=== PATIENT | female | born 1985 | race Caucasian/White ===

== ENCOUNTER 2021-11-22 12:42 | Emergency (ER) | payer OTHER ==
[~2021-11-22 12:42] MED LIST: FLEXERIL10 MG PO; MEDROL 4MG DOSEP4 MG PO
[2021-11-22] MEDS ORDERED: CEPHALEXIN500 MG PO (15:12)
== END 2021-11-22 15:19 | disposition home or self-care (01) ==
LOC: FER 12:42
DX: S01.511A Laceration without foreign body of lip, initial encounter (principal); K13.0 Diseases of lips; J45.909 Unspecified asthma, uncomplicated; W26.8XXA Contact with other sharp object(s), not elsewhere classified, initial encounter; Y92.009 Unspecified place in unspecified non-institutional (private) residence as the place of occurrence of the external cause
CPT/HCPCS: 99283